=== PATIENT | female | born 1990 | race Hispanic/Latino ===

== ENCOUNTER 2023-06-21 12:48 | Emergency (ER) | payer MEDICAID ==
[~2023-06-21] VITALS: Ht 162.6 cm; Wt 70.8 kg
[2023-06-21 12:57] VITALS: BP 125/85; PULSE 97; RESP 16
[2023-06-21] MEDS ORDERED: HYDR25CA PO (13:19)
[2023-06-21] MEDS: LORAZEPAM 1 MG TABLET PO ONE (13:26)
== END 2023-06-21 14:22 | disposition home or self-care (01) ==
LOC: EDH 12:48
DX: F41.0 Panic disorder [episodic paroxysmal anxiety] (principal); F43.0 Acute stress reaction; R25.2 Cramp and spasm; F32.A Depression, unspecified